=== PATIENT | female | born 1990 | race Asian ===

== ENCOUNTER 2019-02-24 18:33 | Emergency (ER) | payer BC, OTHER ==
[~2019-02-24] VITALS: Ht 152.4 cm; Wt 66.0 kg
[2019-02-24 18:38] VITALS: Ht 152.4 cm; Wt 66.0 kg
[2019-02-24] MEDS ORDERED: IBUP-1542 PO (19:21)
[2019-02-24] MEDS ORDERED: PHEN177S43 MT (19:21)
[2019-02-24 19:30] VITALS: BP 102/69; PULSE 83; RESP 18
--- NOTE | 2019-02-24 21:17 | ERD ---
ER Documentation Chief Complaint Chief Complaint throat pain. HPI 28-year-old female presenting to the emergency department complaining of intermittent sore throat for the past several days. Symptoms are moderate in severity. She used [id number] medication with some relief. Symptoms are worse at night. She denies any fevers, chills, abdominal pain, headaches, or other symptoms at this time. ROS All systems reviewed and are negative except as per history of present illness. Medications Home Meds Active Scripts Ibuprofen* (Motrin*) 600 Mg Tab, 600 MG PO Q6, #30 TAB Prov:CRISTOBAL FRANK PA-C 02/24/19 Phenol* (Chloraseptic* [place]) 177 Ml [place].pump, 2 SPRAY MT Q2H PRN for SORE THROAT, #1 BOTTLE Prov:CRISTOBAL FRANK PA-C 02/24/19 Allergies Allergies: Coded Allergies: No Known Allergy (Unverified , 02/24/19) PMhx/Soc Medical and Surgical Hx: pt denies Medical Hx, pt denies Surgical Hx Hx Alcohol Use: No Hx Substance Use: No Hx Tobacco Use: No Smoking Status: Never smoker FmHx Family History: No diabetes Physical Exam Vitals Vital Signs Date Temp Pulse Resp B/P (MAP) Pulse Ox O2 O2 Flow FiO2 Time Delivery Rate 02/24/19 98.2 83 18 102/69 99 Room Air 19:30 (80) 02/24/19 98.1 82 16 112/77 98 18:38 (89) Physical Exam Const: No acute distress Head: Atraumatic Eyes: Normal Conjunctiva ENT: Normal External Ears, Nose and Mouth. 3 shallow ulcerations noted to the posterior pharynx on the left. There is no tonsillar enlargement or exudates. The airway is patent. Uvula is midline. Neck: Full range of motion. No meningismus. Resp: Clear to auscultation bilaterally Cardio: Regular rate and rhythm, no murmurs Skin: No petechiae or rashes Ext: No cyanosis, or edema Neur: Awake and alert Psych: Normal Mood and Affect Procedures/MDM 28-year-old female presents to the emergency department with complaints of sore throat. Her vital signs are stable. She is afebrile. She is nontoxic and well-appearing. There is no evidence to suggest peritonsillar abscess, retropharyngeal abscess, sepsis, serious bacterial infection, Landon's angina, or other emergencies. The patient's clinical presentation is very consistent with an acute viral syndrome. The patient does not exhibit any clinical signs or symptoms concerning for serious bacterial infection or systemic illness. Based on history and clinical exam findings the patient does not appear to have evidence of pneumonia, strep pharyngitis, urinary tract infection, bacteremia, sepsis, or meningitis. For these reasons I do not believe it is necessary to obtain laboratory testing or diagnostic imaging. I believe it would be appropriate for symptom control, and close outpatient primary care follow-up. Based on patient's history of present illness and physical examination the decision was made to discharge. There is no evidence of life threatening injuries or illnesses at this time. On re-examination, patient resting in no distress, stable vital signs, reports feeling better and safe for discharge with outpatient follow up with PMD in 1-2 days. Patient given return precautions. Departure Diagnosis: Primary Impression: Sore throat Condition: Fair Patient Instructions: When You Have a Sore Throat Referrals: [facility] YOU HAVE RECEIVED A MEDICAL SCREENING EXAM AND THE RESULTS INDICATE THAT YOU DO NOT HAVE A CONDITION THAT REQUIRES URGENT TREATMENT IN THE EMERGENCY DEPARTMENT. FURTHER EVALUATION AND TREATMENT OF YOUR CONDITION CAN WAIT UNTIL YOU ARE SEEN IN YOUR DOCTORS OFFICE WITHIN THE NEXT 1-2 DAYS. IT IS YOUR RESPONSIBILITY TO MAKE AN APPOINTMENT FOR FOLOW-UP CARE. IF YOU HAVE A PRIMARY DOCTOR --you should call your primary doctor and schedule an appointment IF YOU DO NOT HAVE A PRIMARY DOCTOR YOU CAN CALL OUR PHYSICIAN REFERRAL HOTLINE AT IF YOU CAN NOT AFFORD TO SEE A PHYSICIAN YOU CAN CHOSE FROM THE FOLLOWING [facility] [id number] [facility] [facility] [address] [facility]. [email or web address] [address] [facility]. [facility] [address] [facility]. [facility] [address] [facility]. [facility]. [address] [place] Additional Instructions: Call your primary care doctor TOMORROW for an appointment during the next 1-2 days.See the doctor sooner or return here if your condition worsens before your appointment time. CRISTOBAL FRANK PA-C Feb 24, 2019 21:17
== END 2019-02-24 19:31 | disposition home or self-care (01) ==
LOC: FTE 18:33
DX: J06.9 Acute upper respiratory infection, unspecified (principal)
CPT/HCPCS: 99282